=== PATIENT | male | born 1980 | race Two or more races ===

== ENCOUNTER 2018-05-09 21:30 | Emergency (ER) | payer MEDICAID, OTHER ==
[~2018-05-09] VITALS: Ht 177.8 cm; Wt 81.6 kg
[2018-05-09] MEDS ORDERED: diphenhydrAMINE HCL 50 MG/ML VIAL ONE (21:34)
[2018-05-09] MEDS ORDERED: HALOPERIDOL LACTATE INJ 5 MG/ML VIAL ONE (21:34)
[2018-05-09] MEDS ORDERED: LORAZEPAM INJ 2 MG/ML VIAL ONE (21:35)
--- NOTE | 2018-05-09 21:42 | NUR ---
BB RA AND [employer] FOR BIZARRE BEHAVIOR S/P METH USE. PT YELLING, AND CURSING AT OFFICERS. UNABLE TO ANSWER QUESTIONS DUE TO BEHAVIOR. SKIN INTACT, NO ACUTE DISTRESS NOTED. READY FOR EVAL.
[2018-05-09] MEDS ORDERED: HALOPERIDOL LACTATE INJ 5 MG/ML VIAL IM ONE (22:00)
[2018-05-09] MEDS ORDERED: diphenhydrAMINE HCL 50 MG/ML VIAL IM ONE (22:00)
[2018-05-09] MEDS ORDERED: LORAZEPAM INJ 2 MG/ML VIAL IM ONE (22:00)
--- NOTE | 2018-05-09 22:02 | NUR ---
PT CALM AND PLACED ON MONITOR.
[2018-05-09 22:20] LABS: BASOPHILS % (AUTO) 0.2 % (0.0-2.0); EOSINOPHILS % (AUTO) 0.1 % (0.0-6.0); HEMATOCRIT 44 % (39-51); HEMOGLOBIN 14.6 g/dL (13.5-17.5); LYMPHOCYTES # (AUTO) 1.3 /CMM (0.8-4.8); LYMPHOCYTES % (AUTO) 9.4 % (20.0-44.0); MEAN CORPUSCULAR HGB CONC 34 g/dl (31.0-36.0); MEAN CORPUSCULAR VOLUME 90 fL (80-96); MONOCYTES # (AUTO) 1.5 /CMM (0.1-1.30); MONOCYTES % (AUTO) 10.6 % (2.0-12.0); NEUTROPHILS # (AUTO) 11.3 /CMM (1.8-8.9); NEUTROPHILS % (AUTO) 79.7 % (43.0-81.0); PLATELET COUNT (AUTO) 247 /CMM (150-450); RED BLOOD CELL COUNT(AUTO) 4.84 MIL/uL (4.5-6.0); WHITE BLOOD COUNT (AUTO) 14.2 K/uL (4.3-11.0)
[2018-05-09 22:30] LABS: CALCIUM, SERUM 9.4 mg/dL (8.5-10.1); CARBON DIOXIDE 22 mmol/L (21-32); CHLORIDE 105 mmol/L (98-107); CREATININE 1.6 mg/dL (0.6-1.3); GLUCOSE 126 mg/dL (74-106); POTASSIUM 3.4 mmol/L (3.5-5.1); SODIUM SERUM 140 mmol/L (136-145); UREA NITROGEN, BLOOD 32 mg/dL (7-18)
[2018-05-09 22:37] LABS: ALANINE AMINOTRANSFERASE 52 U/L (12-78); ALBUMIN 4.2 g/dL (3.4-5.0); ALCOHOL, BLOOD < 3 mg/dL (0-0); ALKALINE PHOSPHATASE 79 U/L (46-116); ASPARTATE AMINOTRANSFERASE 59 U/L (15-37); BILIRUBIN,DIRECT 0.2 mg/dL (0.0-0.2); BILIRUBIN,TOTAL 0.6 mg/dL (0.2-1.0)
[2018-05-09 22:38] LABS: ACETAMINOPHEN 0 ug/ml (10-30); SALICYLATE 2.7 mg/dL (2.8-20.0)
--- NOTE | 2018-05-09 22:48 | NUR ---
PT TAKEN TO CT VIA [facility]
[2018-05-09 22:54] LABS: APPEARANCE,URINE Clear (CLEAR); BILIRUBIN,URINE MODERATE (NEGATIVE); BLOOD, URINE Trace-intact Ery/uL (NEGATIVE); COLOR,URINE Dark (YELLOW); KETONES,URINE 40 (NEGATIVE); LEUKOCYTE ESTERASE ,URINE Negative (NEGATIVE); NITRITE, URINE Negative (NEGATIVE); PH,URINE 5.5 (5.0-8.0); PROTEIN,URINE 100 mg/dl (NEGATIVE); UGLUCOSE Negative (NEGATIVE)
--- NOTE | 2018-05-09 23:07 | NUR ---
PT BACK FROM CT, HOOKED TO MONITOR. WILL CONT TO MONITOR
[2018-05-09 23:26] LABS: BACTERIA,URINE None seen /HPF (None Seen); HYALINE CASTS, URINE Few /LPF (None Seen); MUCUS,URINE Few /LPF (None Seen); SQUAMOUS EPITHELIAL CELL,UR Moderate /HPF (None Seen); URINE AMORPHOUS URATE Many /HPF (None Seen)
[2018-05-09] MEDS ORDERED: IV NS 0.9% 1,000 ML BAG IV ONE (23:30)
--- NOTE | 2018-05-10 07:29 | NUR ---
PT OK TO BE DISCHARGED HOME. IV removed. Catheter intact and site benign. Pressure and 4x4 applied to site. No bleeding noted.Patient discharged to home in stable condition. Written and verbal after care instructions given. Patient verbalizes understanding of instruction.Patient is awake and alert to self, day, and place. PT ambulatory with a steady gait
[2018-05-10 07:30] VITALS: BP 112/62
== END 2018-05-10 07:33 | disposition home or self-care (01) ==
LOC: ER 21:32
DX: G92 Toxic encephalopathy (principal); F19.10 Other psychoactive substance abuse, uncomplicated; F12.10 Cannabis abuse, uncomplicated; R41.82 Altered mental status, unspecified
CPT/HCPCS: 36415; 70450; 80048; 80076; 80305; 80307; 80329; 81001; 85025; 96360; 96372 ×3; 99284; A4606; G0480; J1200; J1630; J2060; J7030; 81000-TC

== ENCOUNTER 2019-04-26 07:04 | Emergency (ER) | payer SELFPAY ==
[~2019-04-26] VITALS: Ht 167.6 cm; Wt 74.8 kg
[2019-04-26 07:39] LABS: BASOPHILS % (AUTO) 0.4 % (0.0-2.0); EOSINOPHILS % (AUTO) 1.1 % (0.0-6.0); HEMATOCRIT 44 % (39-51); HEMOGLOBIN 14.7 g/dL (13.5-17.5); LYMPHOCYTES % (AUTO) 9.5 % (20.0-44.0); MEAN CORPUSCULAR HGB CONC 33 g/dl (31.0-36.0); MEAN CORPUSCULAR VOLUME 92 fL (80-96); MONOCYTES # (AUTO) 0.7 /CMM (0.1-1.30); MONOCYTES % (AUTO) 6.5 % (2.0-12.0); NEUTROPHILS # (AUTO) 8.4 /CMM (1.8-8.9); NEUTROPHILS % (AUTO) 82.5 % (43.0-81.0); PLATELET COUNT (AUTO) 310 /CMM (150-450); RED BLOOD CELL COUNT(AUTO) 4.82 MIL/uL (4.5-6.0); WHITE BLOOD COUNT (AUTO) 10.2 K/uL (4.3-11.0)
[2019-04-26 07:45] LABS: CALCIUM, SERUM 9.3 mg/dL (8.5-10.1); CARBON DIOXIDE 30 mmol/L (21-32); CHLORIDE 102 mmol/L (98-107); CREATININE 0.9 mg/dL (0.6-1.3); GLUCOSE 108 mg/dL (74-106); POTASSIUM 3.6 mmol/L (3.5-5.1); SODIUM SERUM 141 mmol/L (136-145); UREA NITROGEN, BLOOD 16 mg/dL (7-18)
[2019-04-26 07:51] LABS: ALANINE AMINOTRANSFERASE 53 U/L (12-78); ALBUMIN 3.9 g/dL (3.4-5.0); ALKALINE PHOSPHATASE 83 U/L (46-116); ASPARTATE AMINOTRANSFERASE 61 U/L (15-37); BILIRUBIN,DIRECT 0.2 mg/dL (0.0-0.2); BILIRUBIN,TOTAL 0.7 mg/dL (0.2-1.0); TOTAL PROTEIN, SERUM 8.2 g/dL (6.4-8.2)
[2019-04-26 07:55] LABS: ACETAMINOPHEN 0 ug/ml (10-30); SALICYLATE 1.5 mg/dL (2.8-20.0)
[2019-04-26 07:56] LABS: ALCOHOL, BLOOD < 3 mg/dL (0-0)
--- NOTE | 2019-04-26 08:35 | NUR ---
Social service consult requested by MD for possible homelessness and pt wanting to speak to somebody. Per MD notes, pt is a 38-year-old male who "presented to the emergency department stating he wants to get "checked out". He states he wants to speak to somebody but does not want them to think of him badly. Pt denies suicidal ideation or homicidal ideation but states he needs to speak to somebody. Medically he has some bumps on his hands and feet that he wants looked at. He admits to using crystal meth." [employer] and DEEPA Wood met with the pt bedside. Pt appears disheveled and unkempt. [employer] attempted to speak with the pt, however pt is uncooperative and agitated. [employer] to attempt to assess pt at a later time if and when he is cooperative with [employer].
--- NOTE | 2019-04-26 11:16 | NUR ---
MANAGER LOCAL and CHARLES Tabares attempted to assess pt. again. Pt is crying and mumbling stating, " that's why I do drugs." When MANAGER LOCAL asks him to elaborate, pt refuses to answer. Pt is not cooperating. MANAGER LOCAL updated Dr. Patel. Pt will require a crisis evaluation. Dr. Patel agreed.
--- NOTE | 2019-04-26 14:32 | NUR ---
TOOK OVER PATIENT CARE. PER TRIAGE BIB ra, was found sleeping on street c/o bilateral foot aches. PT now in bed, denies pain, vss. Pt AAOX4. Placed on monitor and pulse ox. Will continue to monitor.
--- NOTE | 2019-04-26 14:37 | NUR ---
URINE COLLECTED AND SENT TO LAB
[2019-04-26 14:49] LABS: APPEARANCE,URINE Clear (CLEAR); BILIRUBIN,URINE SMALL (NEGATIVE); BLOOD, URINE Negative Ery/uL (NEGATIVE); COLOR,URINE Yellow (YELLOW); KETONES,URINE Trace (NEGATIVE); LEUKOCYTE ESTERASE ,URINE Negative (NEGATIVE); NITRITE, URINE Negative (NEGATIVE); PH,URINE 6.5 (5.0-8.0); PROTEIN,URINE Negative (NEGATIVE); UGLUCOSE Negative (NEGATIVE)
[2019-04-26 14:53] LABS: WBC,URINE 0-2 /HPF (0-3)
[2019-04-26 14:54] LABS: BACTERIA,URINE Few /HPF (None Seen); SQUAMOUS EPITHELIAL CELL,UR Rare /HPF (None Seen)
--- NOTE | 2019-04-26 15:11 | NUR ---
Patient is resting comfortably in bed. Easily aroused. VSS.
--- NOTE | 2019-04-26 18:58 | NUR ---
PT RESTING. VSS.
[2019-04-26 20:33] VITALS: BP 123/68
--- NOTE | 2019-04-26 20:33 | NUR ---
PT LEFT THE HOSPITAL. Pt signed homeless waiver. Ambulated with steady gait. vss. No acute distress noted.
--- NOTE | 2019-04-26 20:34 | NUR ---
GIVEN TAP CARD.
== END 2019-04-26 20:34 | disposition home or self-care (01) ==
LOC: ER 07:08
DX: F29 Unspecified psychosis not due to a substance or known physiological condition (principal); F19.90 Other psychoactive substance use, unspecified, uncomplicated; R41.82 Altered mental status, unspecified
CPT/HCPCS: 36415; 80048; 80076; 80305; 80307; 80329; 81001; 85025; 99284; G0480; 81000-TC